=== PATIENT | male | born 1950 | race Caucasian/White ===

== ENCOUNTER → 2017-05-10 | Outpatient (CLI) | payer BC ==
[2017-05-10 19:25] LABS: ALBUMIN 3.3 GM/DL (3.2-5.2); ALKALINE PHOSPHATASE 90 U/L (45-117); ALT/SGPT 27 U/L (12-78); ANION GAP 7 MEQ/L (8-16); AST/SGOT 23 U/L (15-37); BILIRUBIN,TOTAL 0.7 MG/DL (0.2-1.0); BLOOD UREA NITROGEN 16 MG/DL (7-18); CALCIUM LEVEL 9.6 MG/DL (8.8-10.2); CARBON DIOXIDE LEVEL 30 MEQ/L (21-32); CHLORIDE LEVEL 100 MEQ/L (98-107); CHOLESTEROL LEVEL 149 MG/DL (<200); CREATININE FOR GFR 1.21 MG/DL (0.70-1.30); GLOMERULAR FILTRATION RATE > 60.0 (>49); GLUCOSE, FASTING 103 MG/DL (80-110); MAGNESIUM LEVEL 2.4 MG/DL (1.8-2.4); SODIUM LEVEL 137 MEQ/L (136-145); TOTAL PROTEIN 6.6 GM/DL (6.4-8.2); TRIGLYCERIDES LEVEL 133 MG/DL (<150)
[2017-05-10 19:27] LABS: POTASSIUM SERUM 5.6 MEQ/L (3.5-5.1)
[2017-05-10 19:42] LABS: ADD MORPHOLOGY? YES; BASO # 0.1 K/mm3 (0.0-0.2); BASO % 0.7 % (0.0-1.0); EOS # 0.4 K/mm3 (0.0-0.50); EOS % 3.4 % (0.0-3.0); LARGE UNSTAINED CELL # 0.1 K/mm3 (0.0-0.4); LARGE UNSTAINED CELL % 1.3 % (0.0-4.0); LYMPH # 1.3 K/mm3 (1.5-4.5); LYMPH % 12.4 % (24.0-44.0); MEAN CORPUSCULAR HEMOGLOBIN 29.1 pg (27.0-33.0); MEAN CORPUSCULAR VOLUME 90.8 fl (80.0-96.0); MONO # 0.6 K/mm3 (0.0-0.8); MONO % 5.7 % (0.0-5.0); NEUTROPHILS % 76.6 % (36.0-66.0); PLATELET COUNT, AUTOMATED 582 k/mm3 (150-450); RED CELL DISTRIBUTION WIDTH 15.4 % (11.5-14.5); WHITE BLOOD COUNT 10.5 K/mm3 (4.0-10.0)
[2017-05-10 21:33] LABS: ANISOCYTOSIS 1+; HYPOCHROMASIA 1+; POLYCHROMASIA 1+
--- NOTE | 2017-05-10 22:44 | REP ---
Clinical: Valve replacement. Technique: PA and lateral views of the chest. Comparison: None. Findings: The patient is status post sternotomy CABG and aortic valve replacement. Cardiac silhouette is upper limits of normal. Subtle left basilar atelectasis and possible small pleural effusion cannot be excluded. No pneumothorax. Skeletal structures intact. Impression: Status post aortic valve replacement. Trace left basilar atelectasis and small pleural reaction/effusion. Signed by Aníbal Lopes MD 05/10/2017 10:34 P
== END ==
LOC: M SMT 13:18
PROVIDERS: ATTEND Family Medicine
DX: I10 Essential (primary) hypertension (principal); E78.5 Hyperlipidemia, unspecified; Z95.2 Presence of prosthetic heart valve

== ENCOUNTER → 2017-05-19 | Outpatient (CLI) | payer BC ==
[2017-05-19 18:16] LABS: ADD MORPHOLOGY? YES; BASO # 0.1 K/mm3 (0.0-0.2); BASO % 0.9 % (0.0-1.0); EOS # 0.4 K/mm3 (0.0-0.50); EOS % 5.2 % (0.0-3.0); LARGE UNSTAINED CELL # 0.1 K/mm3 (0.0-0.4); LARGE UNSTAINED CELL % 1.5 % (0.0-4.0); LYMPH # 1.3 K/mm3 (1.5-4.5); LYMPH % 17.8 % (24.0-44.0); MEAN CORPUSCULAR HEMOGLOBIN 27.4 pg (27.0-33.0); MEAN CORPUSCULAR HGB CONC 30.3 g/dl (32.0-36.5); MEAN CORPUSCULAR VOLUME 90.4 fl (80.0-96.0); MONO # 0.6 K/mm3 (0.0-0.8); MONO % 7.6 % (0.0-5.0); NEUTROPHILS # 5.1 K/mm3 (1.8-7.7); NEUTROPHILS % 67.1 % (36.0-66.0); PLATELET COUNT, AUTOMATED 427 k/mm3 (150-450); RED CELL DISTRIBUTION WIDTH 14.6 % (11.5-14.5); WHITE BLOOD COUNT 7.5 K/mm3 (4.0-10.0)
[2017-05-19 18:20] LABS: ALBUMIN 3.3 GM/DL (3.2-5.2); ALKALINE PHOSPHATASE 99 U/L (45-117); ALT/SGPT 19 U/L (12-78); ANION GAP 7 MEQ/L (8-16); AST/SGOT 19 U/L (15-37); BILIRUBIN,TOTAL 0.5 MG/DL (0.2-1.0); BLOOD UREA NITROGEN 14 MG/DL (7-18); CALCIUM LEVEL 9.3 MG/DL (8.8-10.2); CARBON DIOXIDE LEVEL 28 MEQ/L (21-32); CHLORIDE LEVEL 108 MEQ/L (98-107); CREATININE FOR GFR 1.23 MG/DL (0.70-1.30); GLOMERULAR FILTRATION RATE > 60.0 (>49); GLUCOSE, FASTING 85 MG/DL (80-110); SODIUM LEVEL 143 MEQ/L (136-145); TOTAL PROTEIN 6.3 GM/DL (6.4-8.2)
[2017-05-19 18:21] LABS: POTASSIUM SERUM 5.2 MEQ/L (3.5-5.1)
[2017-05-19 19:07] LABS: HYPOCHROMASIA 1+
== END ==
LOC: M SMT 13:50
PROVIDERS: ATTEND Family Medicine
DX: I10 Essential (primary) hypertension (principal); Q21.0 Ventricular septal defect; Z95.2 Presence of prosthetic heart valve

== ENCOUNTER 2018-11-08 11:55 | Emergency (ER) | payer BC, OTHER ==
[~2018-11-08] VITALS: Ht 172.7 cm; Wt 88.6 kg
[2018-11-08] MEDS ORDERED: OXYMETAZOLINE NASAL SPRAY (AFRIN) ONE (12:15)
[2018-11-08] MEDS ORDERED: SILVER NITRATE APPLICATOR TOP ONE (12:15)
[2018-11-08] MEDS ORDERED: WARF4TAB51 PO (12:20)
[2018-11-08] MEDS ORDERED: LISI-538 PO (12:20)
[2018-11-08] MEDS ORDERED: METO1TAB7 (12:20)
[2018-11-08] MEDS ORDERED: BUDE3CAP (12:20)
[2018-11-08] MEDS ORDERED: MESA1.2T (12:20)
[2018-11-08] MEDS ORDERED: ROSU40TA3 (12:20)
[2018-11-08 12:39] LABS: HEMOGLOBIN 13.1 g/dl (13.5-17.5); MEAN CORPUSCULAR HGB CONC 31.2 g/dl (32.0-36.5); MEAN CORPUSCULAR VOLUME 83.3 fl (80.0-96.0); PLATELET COUNT, AUTOMATED 463 10^3/uL (150-450); RED BLOOD COUNT 5.04 10^6/uL (4.30-6.10); WHITE BLOOD COUNT 14.8 10^3/uL (4.0-10.0)
[2018-11-08 12:48] LABS: INR 3.13; PROTHROMBIN TIME 32.9 SECONDS (12.1-14.4)
[2018-11-08 13:39] VITALS: BP 151/85
[2018-11-09] MEDS ORDERED: LOPR1TAB6 PO (06:25)
== END 2018-11-08 13:46 | disposition home or self-care (01) ==
LOC: M ED 11:55
DX: R04.0 Epistaxis (principal); D68.32 Hemorrhagic disorder due to extrinsic circulating anticoagulants; I10 Essential (primary) hypertension; E78.00 Pure hypercholesterolemia, unspecified; Z79.899 Other long term (current) drug therapy; Z79.01 Long term (current) use of anticoagulants; Z95.2 Presence of prosthetic heart valve

== ENCOUNTER 2018-11-09 05:17 | Emergency (ER) | payer OTHER ==
[~2018-11-09] VITALS: Ht 172.7 cm; Wt 88.6 kg
[~2018-11-09 05:17] MED LIST: BUDE3CAP; LISI-538 PO; MESA1.2T; METO1TAB7; ROSU40TA3; WARF4TAB51 PO
[2018-11-09] MEDS ORDERED: PHYTONADIONE INJection 10 MG in NS 50 ML IV ONE (05:30)
[2018-11-09] MEDS ORDERED: SILVER NITRATE APPLICATOR TOP ONE (06:15)
[2018-11-09] MEDS ORDERED: COCAINE 4% TOP SOLN 4 ML VIAL TOP ONE (06:15)
[2018-11-09] MEDS ORDERED: LOPR1TAB6 PO (06:25)
[2018-11-09 06:45] VITALS: BP 149/72
== END 2018-11-09 06:46 | disposition home or self-care (01) ==
LOC: M ED 05:17
DX: R04.0 Epistaxis (principal); I10 Essential (primary) hypertension; I48.91 Unspecified atrial fibrillation; Z79.899 Other long term (current) drug therapy; Z79.01 Long term (current) use of anticoagulants
CPT/HCPCS: 96374; 99283; J3430